=== PATIENT | female | born 1950 | race Caucasian/White ===

== ENCOUNTER → 2018-10-08 | Outpatient (CLI) | payer MEDICARE, MEDICAID | END | disposition home or self-care (01) | LOC: PCVCCLINIC 11:47 | PROVIDERS: ATTEND Internal Medicine | DX: R07.9 Chest pain, unspecified (principal); R06.09 Other forms of dyspnea; I10 Essential (primary) hypertension; K22.2 Esophageal obstruction | CPT/HCPCS: 93005; G0463 ==

== ENCOUNTER → 2018-10-14 | Outpatient (CLI) | payer MEDICARE, MEDICAID ==
[~2018-10-14] MED LIST: REGADENOSON 0.4 MG/5 ML DISP.SYRIN. IV ONE
--- NOTE | 2018-10-14 09:51 | PCVCIMAG ---
APPROVED REPORT Study performed: 10/14/2018 07:54:07 EXAM: Comprehensive 2D, Doppler, and color-flow Echocardiogram Patient Location: Echo lab Status: routine BSA: 1.70 HR: 57 bpmBP: 122/82 mmHg Rhythm: Bradycardia Other Information Study Quality: Adequate Indications Dyspnea Chest Pain 2D Dimensions IVSd: 9.63 (7-11mm) LVDd: 38.66 mm PWd: 9.69 (7-11mm) LVDs: 27.82 (25-40mm) Left Atrium: 29.81 (27-40mm) Aortic Root: 29.67 mm LV Single Plane 4CH: 57.11 % LV Single Plane 2CH: 58.52 % Biplane EF: 57.3 % Volumes Left Atrial Volume (Systole) Single Plane 4CH: 52.80 mLSingle Plane 2CH: 44.52 mL LA ESV Index: 30.00 mL/m2 Aortic Valve AoV Peak Lexx.: 1.19 m/s AO Peak Gr.: 5.66 mmHgLVOT Max P.47 mmHg LVOT Max V: 0.93 m/s Mitral Valve E/A Ratio: 1.7 MV Decel. Time: 190.84 ms MV E Max Lexx.: 0.67 m/s MV A Lexx.: 0.39 m/s IVRT: 110.73 ms Pulmonary Valve PV Peak Lexx.: 0.81 m/sPV Peak Gr.: 2.63 mmHg Pulmonary Vein P Vein S: 0.29 m/sP Vein A: 0.31 m/s P Vein D: 0.44 m/sP Vein A Dur.: 131.5 msec P Vein S/D Ratio: 0.66 Tricuspid Valve TR Peak Lexx.: 2.48 m/s TR Peak Gr.: 24.68 mmHg TV Vmax: 0.51 m/s Left Ventricle The left ventricle is normal size. There is normal LV segmental wall motion. There is normal left ventricular wall thickness. Left ventricular systolic function is normal. The left ventricular ejection fraction is within the normal range. LVEF is 55-60%. Grade II - pseudonormal filling dynamics. Right Ventricle The right ventricle is normal size. The right ventricular systolic function is normal. Atria The left atrium size is normal. The right atrium size is normal. Aortic Valve The aortic valve is normal in structure. No aortic regurgitation is present. There is no aortic valvular stenosis. Mitral Valve The mitral valve is normal in structure. Mild mitral regurgitation. No evidence of mitral valve stenosis. Tricuspid Valve The tricuspid valve is normal in structure. Mild tricuspid regurgitation with PAP of 32 mmHg. Pulmonic Valve The pulmonary valve is normal in structure. Trace pulmonic regurgitation. Great Vessels The aortic root is normal in size. IVC is normal in size and collapses >50% with inspiration. Pericardium There is no pericardial effusion. There is no pleural effusion. <Conclusion> The left ventricle is normal size. LVEF is 55-60%. The aortic valve is normal in structure. The mitral valve is normal in structure. Mild mitral regurgitation. The tricuspid valve is normal in structure. Mild tricuspid regurgitation with PAP of 32 mmHg. The pulmonary valve is normal in structure. Trace pulmonic regurgitation. There is no pericardial effusion. There is no pleural effusion.
--- NOTE | 2018-10-15 16:03 | PCVCIMAG ---
APPROVED REPORT Imaging Protocol: Rest Tc-99m/Stress Tc-99m 1 day Study performed: 10/14/2018 08:58:52 Indication: Fatigue, Chest tightness Patient Location: Out-Patient Stress Nurse: Nicole Mario RN, Krys Qiu RN NE Tech:Anna Renetta [facility] Ht: 5 ft 0 in Wt: 160 lbs BSA: 1.70 m2 HR: 61 bpm BP: 131/75 mmHg BMI: 31.24 Rhythm: Sinus Rhythm Medical History Medical History: HTN, Hyperlipidemia Medications: Simvastatin, Lisinopril - HCTZ Allergies: No known drug allergies Cardiac Risk Factors: Age Pretest Chest Pain Characteristics: No chest pain Exercise History: Sedentary Physical Disabilities: Knees, heel injury Resting Data Rest SPECT myocardial perfusion imaging was performed in supine position 45 minutes following the intravenous injection of 10.5 mCi of Tc-99m Sestamibi. Time of rest injection: 0830 Administration Route: IV Administration Site: Right AC Pharmacologic Stress Pharmacologic stress test was performed by injecting Regadenoson 0.4 mg IV push over 10-15 seconds immediately followed by the intravenous injection of 32.9 mCi of Tc-99m Sestamibi. Time of stress injection: 0940 Date: 10/14/2018 Administration Route: IV Administration Site: Right AC Gated Stress SPECT was performed 45 minutes after stress injection. The images were gated to evaluate regional wall motion and calculate left ventricular ejection fraction. Stress Test Details Stress Test: Pharmacologic stress testing performed using 0.4 mg of regadenoson per 5 mL given IV over 10 seconds. Reason for pharmacologic stress test: physical limitation. HRMax Heart Rate (APMHR): 152 bpm Resting HR: 61 bpmTarget HR (85% APMHR): 129 bpm Max HR Achieved: 96 bpm % of APMHR: 63 Recovery HR: 81 bpm BP Resting BP: 131/75 mmHg Max BP: 133/73 mmHg Recovery BP: 147/88 mmHg ECG Resting ECG: Sinus Rhythm Stress ECG: Sinus Rhythm Arrhythmia: None Recovery ECG: Sinus Rhythm Clinical Reason for Termination: Completed protocol Stress Symptoms: Abdominal discomfort, Chest pain, Nausea, Lightheaded Exercise duration: 0 min 55 sec Symptoms resolved with caffeine. Stress ECG Conclusion 1. Adequate response to IV Lexiscan 2. Inadequate HR for ECG diagnosois Study Data Post stress, the left ventricular ejection was 67%.. SSS: 8 SRS: 16 SDS: 0 TID = 0.97. Perfusion There is a large area of severely reduced uptake in the entire segment of the inferior wall which is seen on the stress images as well as the resting images. This area thickens and moves normally and is most consistent with attenuation artifact. Nuclear Conclusion ECG Findings: non-diagnostic Clinical Findings: negative for ischemia Nuclear Findings: negative for ischemia but evidence of attenuation artifact Exercise Capacity: not assessed Left Ventricular Function: normal 1. LOw risk study <Conclusion> 1. Adequate response to IV Lexiscan 2. Inadequate HR for ECG diagnosois
== END | disposition home or self-care (01) ==
LOC: PCVCIMAG 07:47
PROVIDERS: ATTEND Internal Medicine
DX: I08.1 Rheumatic disorders of both mitral and tricuspid valves (principal); I10 Essential (primary) hypertension; R06.02 Shortness of breath; R06.09 Other forms of dyspnea; E78.5 Hyperlipidemia, unspecified; Z72.89 Other problems related to lifestyle
CPT/HCPCS: 78452; 93017; 93306; A9500; J2785